=== PATIENT | female | born 1970 | race Caucasian/White ===

== ENCOUNTER 2022-02-13 07:30 | Outpatient (RCR) | payer OTHER, SELFPAY | END 2022-04-22 14:15 | disposition home or self-care (01) | PROVIDERS: Visit Provider Obstetrics & Gynecology | DX: M25.512 Pain in left shoulder (principal); Z51.89 Encounter for other specified aftercare | CPT/HCPCS: 97035; 97110; 97140 ==

== ENCOUNTER 2022-07-26 07:25 | Outpatient (CLI) | payer OTHER, SELFPAY ==
--- NOTE | 2022-07-26 07:45 | CRLHL7_ITS ---
For Patients: As a result of the Cures Act, medical imaging exams and procedure reports are released immediately into your electronic medical record. You may view this report before your referring provider. If you have questions, please contact your health care provider. BILATERAL SCREENING MAMMOGRAM WITH COMPUTER-AIDED DETECTION AND TOMOSYNTHESIS TECHNIQUE: CC and MLO views were obtained. These mammographic images have been obtained using full-field digital technique. These mammographic images were interpreted with the benefit of computer-aided detection. Breast tomosynthesis was used in this interpretation. COMPARISON FILM: 08/22/21, 08/15/20, 07/20/19. FINDINGS: The breasts are heterogeneously dense, which may obscure small masses. IMPRESSION: There is no radiographic evidence for malignancy. ASSESSMENT: BI-RADS Category 2: Benign RECOMMENDATION: Routine screening mammogram in 1 year. A lay language report of this examination will be provided to the patient. JOSE PAINTING M.D. Diagnostic Radiologist [email or web address] [email or web address] Transcribed: 07/26/2022, 2:[address]/Dictated by: Jose Painting MD @ 07/26/2022 8:37:00 AM (Electronically Signed)
== END 2022-07-26 07:26 | disposition home or self-care (01) ==
LOC: MAMMO 07:26
PROVIDERS: PCP Obstetrics & Gynecology; Visit Provider Obstetrics & Gynecology
DX: Z12.31 Encounter for screening mammogram for malignant neoplasm of breast (principal); R92.2 Inconclusive mammogram
CPT/HCPCS: 77063; 77067

== ENCOUNTER 2022-10-10 09:30 | Outpatient (REF) | payer OTHER, SELFPAY ==
[2022-10-10 09:59] LABS: Albumin* 4.1 g/dL (3.3-5.0); Chloride* 104 mmol/L (96-114); Potassium* 4.6 mmol/L (3.6-5.1); Sodium* 137 mmol/L (135-149)
[2022-10-10 10:01] LABS: Cholesterol* 205 mg/dL (90-199)
[2022-10-10 10:02] LABS: Alanine Aminotransferase* 27 U/L (4-35); Alkaline Phosphatase* 64 U/L (40-150); Aspartate Amino Transferase* 31 U/L (12-35); Basophils Absolute Auto 0.03 K/uL (0.00-0.30); Basophils Percent Auto 0.6 % (0.0-3.0); Bilirubin Total* 0.3 mg/dL (0.1-1.5); Blood Urea Nitrogen* 15 mg/dL (7-30); Carbon Dioxide* 30 mmol/L (20-32); Creatinine* 0.7 mg/dL (0.5-1.5); Eosinophils Absolute Auto 0.09 K/uL (0.00-0.50); Eosinophils Percent Auto 1.9 % (0.0-7.0); Estimated Glomerular Filt Rate 104 ml/min; Glucose* 90 mg/dL (60-115); Hematocrit 37.2 % (33.0-51.0); Hemoglobin* 12.3 gm/dL (12.0-16.0); Immature Granulocytes Abs Auto 0.01 K/uL (0.00-0.30); Immature Granulocytes Pct Auto 0.2 %; Lymphocytes Absolute Auto 1.67 K/uL (0.90-2.90); Lymphocytes Percent Auto 35.6 % (20-44); Mean Corpuscular HGB Conc 33 gm/dL (32-36); Mean Corpuscular Hemoglobin 32 pg (26-34); Mean Corpuscular Volume 97 fL (80-100); Neutrophils Absolute Auto 2.42 K/uL (1.7-7.0); Neutrophils Percent Auto 51.7 % (42.0-72.0); Platelet Count* 301 K/uL (140-440); RDW Coefficient of Variation % 12.3 % (11.5-15.5); Red Blood Count 3.82 m/uL (4.00-5.20); Total Protein* 6.7 g/dL (6.0-8.3); Triglycerides* 77 mg/dL (40-149); White Blood Count* 4.69 K/uL (4.50-11.00)
[2022-10-10 10:03] LABS: Calcium* 9.1 mg/dL (8.4-10.6); HDL Cholesterol* 65 mg/dL (>=50); LDL Cholesterol Calculated 125 mg/dL (<100)
[2022-10-10 10:06] LABS: Slide Review Reflex No
[2022-10-10 10:19] LABS: Hemoglobin A1C* 4.82 % (0-5.6)
[2022-10-11 12:24] LABS: Insulin, Random 7 uIU/mL
== END 2022-10-10 09:31 | disposition home or self-care (01) ==
LOC: NPINS 09:30
PROVIDERS: PCP Obstetrics & Gynecology
DX: R63.5 Abnormal weight gain (principal)
CPT/HCPCS: 80053; 80061; 83036; 83525; 84443; 85025

== ENCOUNTER 2023-02-05 07:13 | Outpatient (CLI) | payer OTHER, SELFPAY ==
--- NOTE | 2023-02-05 07:15 | CRLHL7_ITS ---
For Patients: As a result of the 21st Century Cures Act, medical imaging exams and procedure reports are released immediately into your electronic medical record. You may view this report before your referring provider. If you have questions, please contact your health care provider. HISTORY: Right knee pain. TECHNIQUE: Noncontrast MRI of the right knee. COMPARISON: No prior. FINDINGS: Medial compartment: Medial meniscus: There is complex tearing of the posterior horn of the medial meniscus as noted on coronal PD fat-sat images #18 through 21 of series 8. The tear is most severe just medial to the posterior horn root attachment of the meniscus. There is resultant loss of medial meniscal hoop stress with medial extrusion of the medial meniscal body. Anterior horn of the meniscus is intact. Articular cartilage: High-grade medial femoral condyle and medial tibial plateau articular cartilage wear (grade 3). Bone marrow edema within medial tibial plateau medially may relate to mild stress change or contusion. There is no discrete fracture. - Lateral compartment: Lateral meniscus: The posterior horn root region of lateral meniscus may be frayed. Lateral meniscus otherwise intact. Articular cartilage: High-grade cartilage loss involving the posterior aspect lateral tibial plateau (grade 3). Focal high-grade chondromalacia of the junction of the central and posterior aspects of lateral femoral condyle (grade 3). - Patellofemoral compartment: High-grade cartilage wear of the patella and trochlea (grade 3). - Ligaments: Anterior and posterior cruciate ligaments are intact. Chronic thickening of the proximal MCL. Lateral collateral complex intact. - Extensor mechanism: Distal quadriceps tendon and patellar tendon are intact. The medial and lateral patellar restraints are intact. No patellar subluxation. Insall-Salvati ratio upper limits normal. - Joint space: Large joint effusion with mild synovitis. - Bones and soft tissues: As above, there is bone marrow edema involving the medial tibial plateau medially, without discrete fracture. No avascular necrosis. No significant popliteal cyst. Subcutaneous edema is present. IMPRESSION: 1. Complex tear of the posterior horn of the medial meniscus with loss of meniscal hoop stress. 2. Possible fraying of the posterior horn root of the lateral meniscus. 3. Area of bone marrow edema involving the medial tibial plateau may relate to contusion or mild stress change. No discrete fracture. 4. Tricompartmental high-grade chondromalacia (grade 3). 5. Large knee joint effusion. Dictated by Esteban Moulton MD @ 02/06/2023 8:27:02 AM (Electronically Signed)
== END 2023-02-05 07:14 | disposition home or self-care (01) ==
LOC: MRI 07:14
PROVIDERS: PCP Obstetrics & Gynecology; Visit Provider Obstetrics & Gynecology
DX: M25.561 Pain in right knee (principal); S83.241A Other tear of medial meniscus, current injury, right knee, initial encounter; M94.261 Chondromalacia, right knee; M25.461 Effusion, right knee
CPT/HCPCS: 73721

== ENCOUNTER 2023-03-10 06:29 | Day surgery (SDC) | payer OTHER, SELFPAY ==
[2023-03-10] VITALS (15 sets, daily range): BP systolic 98–138; BP diastolic 52–80; PULSE 75–107; RESP 16–20; TEMP 36.6–37.1; O2SAT 97–100; BMI 27.3
[2023-03-10] MEDS: LACTATED RINGERS 1000 ML 1,000 ML 100 ML IV (06:35)
[2023-03-10] MEDS: SODIUM CHLORIDE 0.9 % (FLUSH) 10 ML SYRINGE IVF (07:08)
[2023-03-10] MEDS: CEFAZOLIN 2 GM in 0.9 % SODIUM CHLORIDE Mini-bag 100 ML IVPB (07:40)
[2023-03-10] MEDS: ROPIVACAINE 0.5% 30 ML 150 MG INJECTION (08:10)
--- NOTE | 2023-03-10 08:13 | P.ORPRC_ITS ---
Procedure Note Date of procedure: 03/10/23 Procedure: PREOPERATIVE DIAGNOSIS: 1. Right knee medial meniscus tear POSTOPERATIVE DIAGNOSIS: 1. Right knee medial meniscus tear 2. 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 Right knee arthroscopic partial medial meniscectomy 2. Right knee chondroplasty medial and lateral compartment SURGEON: Kp Murray M.D. CLAIM PROCESSING SPECIALIST: BENJAMIN Hensley. Of note, an emergency room physician assistant was critical for this case to aid in patient positioning, knee manipulation, instrument exchange, and closure. ANESTHESIA: Spinal EBL: 2ml TOURNIQUET: 20 min at 300 torr COMPLICATIONS: None evident INDICATIONS: The patient is a pleasant 52-year-old female who has experienced right knee pain particularly with any twisting or turning. Physical exam was concerning for medial meniscus tear, this was confirmed on MRI. Additionally, attempted nonoperative management has been tried, and failed. Thus, surgery was recommended. FINDINGS: Complex tear posterior horn approaching midbody medial meniscus. It did approach the posterior root. The posterior root did appear to be intact on the far periphery. Grade 4 chondromalacia patellofemoral compartment-especially trochlear groove distally. Grade 3 chondromalacia medial and lateral femoral condyles with loose chondral flaps for each. Intact lateral meniscus. ACL and PCL were intact. No loose bodies evident. DESCRIPTION OF PROCEDURE: After a thorough discussion of risks, benefits, and alternatives, the patient was brought to the operating room and placed upon the operating table. Induction of anesthesia was undertaken as previously noted. 2g iv Ancef was administered within 1 hr of incision preoperatively. Appropriate time-out was performed identifying proper patient, site, and procedure. The right lower extremity was prepped and draped in the appropriate sterile fashion using ChloraPrep. The limb was exsanguinated and tourniquet inflated. Anterolateral and anteromedial portals were established with an 11 blade, and a diagnostic arthroscopy was performed. This identified the findings as noted above. Following the diagnostic arthroscopy, a partial medial menisectomy was performed with the combination of basket forceps and a motorized shaver. Following this, the meniscus was re-probed and found to be stable. Approximately 20% of the overall meniscus required resection. In addition, chondroplasty was performed utilizing the torpedo shaver to debride the loose chondral flaps in the medial and lateral compartments of the femoral condyles. At this stage, the shaver was reinserted into the suprapatellar pouch and all remaining meniscal debris was evacuated. Instruments were removed, excess fluid was drained, and closure performed with 4-0 Monocryl with Steri-Strips. Dressings were applied, the tourniquet deflated, and the patient was awoken from anesthesia and transferred to the PACU in stable condition. PLAN: 1. Weightbear as tolerated operative extremity. Crutch / walker ambulation assistance PRN. 2. Ice, acetominophen and/or ibuprofen, and oxycodone for pain as needed. 3. Knee range of motion and quad sets/straight leg raise regularly 4. Follow up with PA visit in 1-2 weeks for a wound check and possibly to initiate physical therapy.
--- NOTE | 2023-03-10 08:27 | W.ANESCHARGE ---
Anesthesia Charges Start Date/Time Anesthesia Start Date: 03/10/23 Anesthesia Start Time: 07:26 Stop Date/Time Anesthesia Stop Date: 03/10/23 Anesthesia Stop Time: 08:25
--- NOTE | 2023-03-10 08:49 | W.ANESCHARGE ---
Anesthesia Charges Start Date/Time Anesthesia Start Date: 03/10/23 Anesthesia Start Time: 07:26 Stop Date/Time Anesthesia Stop Date: 03/10/23 Anesthesia Stop Time: 08:25
[2023-03-10] MEDS: ONDANSETRON 2 MG/ML inj 4 MG IVP (09:43)
== END 2023-03-10 10:25 | disposition home or self-care (01) ==
PROVIDERS: PCP Obstetrics & Gynecology; Visit Provider Orthopaedic Surgery Sports Medicine
PROC: (CPT 29870; principal; 2023-03-10 07:45)
DX: S83.231A Complex tear of medial meniscus, current injury, right knee, initial encounter (principal); M94.261 Chondromalacia, right knee
CPT/HCPCS: 29881; 1400; J0690; J2371; J2405; J2704; J2795; J3010; J7120

== ENCOUNTER 2023-05-28 10:15 | Outpatient (RCR) | payer OTHER, SELFPAY | END 2023-08-19 11:18 | disposition home or self-care (01) | PROVIDERS: PCP Obstetrics & Gynecology; Visit Provider Dentist General Practice | DX: M26.69 Other specified disorders of temporomandibular joint (principal); M26.623 Arthralgia of bilateral temporomandibular joint; R29.898 Other symptoms and signs involving the musculoskeletal system; Z51.89 Encounter for other specified aftercare | CPT/HCPCS: 97110; 97140; 97161 ==

== ENCOUNTER 2024-04-30 13:55 | Outpatient (CLI) | payer OTHER, SELFPAY ==
--- OUTSIDE RECORDS SUMMARY | 2024-04-30 13:58 | XMS_ITS | Clinical Summary ---
Author Organization [facility] Address [address] [place] [address] Care Team Providers Care Agronomy Internship Name Role Phone Needs Pcp, Assignment Primary Care Provider [phone] Source Comments You are receiving this document as you are listed as the primary care provider,follow-up provider, or the patient has been referred to you for consultation.This is in compliance with the Medicare andMedicaid EHR Incentive Program,which states Providers who transition their patient to another setting of careor provider of care or refers their patient to another provider of care shouldprovide summary care record for each transition of care or referral. [facility] Allergies No known active allergies Medications Medication Sig Dispensed Refills Start Date End Date Status buPROPion (WELLBUTRIN XL) 300 MG 24 hour release tablet Take 1 Tablet (300 mg) by mouth daily. 08/04/2021 Active estradiol (VIVELLEDOT) 0.05 MG/24HR biweekly patch Apply 1 Patch to skin two times a week. 07/29/2021 Active ibuprofen (MOTRIN) 200 MG tablet Take 3 Tablets (600 mg) by mouth every 24 hours as needed for Pain. 100 Tablet 11 04/30/2023 Active desvenlafaxine (PRISTIQ) 100 MG 24 hour release tablet Take 1 Tablet (100 mg) by mouth daily. 02/17/2023 Active testosterone (ANDROGEL) 50 MG/5GM (1%) gel SMARTSI Drop(s) Topical Daily 01/07/2023 Active hydroxychloroquine (PLAQUENIL) 200 MG tabletIndications:R heumatoid Arthritis 2 tabs on even days and 1 tab on odd days. Indications: Rheumatoid Arthritis 135 Tablet 3 04/30/2023 Active Active Problems Problem Noted Date Diagnosed Date Seronegative rheumatoid arthritis 08/15/2021 Rotator cuff syndrome, left 08/15/2021 Chronic neck pain 08/15/2021 Primary osteoarthritis of both knees 08/15/2021 Immunizations Name Administration Dates Next Due Flu Vac Preserv Free (3+yrs) 03/29/2020, 01/15/2013,03/11/2012, 010,03/24/2004 Fluzone Qiv Multidose Vial 0 .25 (6-35 Mos) 03/21/2021 HepA Adult (19+ yrs) 03/18/2004 HepB Adult (Engerix-B, 20+ y rs, 3 dose series) 06/22/1995 Pfizer Monovalent 12+ Purple Top 03/21/2021,06/23,06/14/2020 Td 10/21/2003 Tdap 11/04/2014 Typhoid (Typhim Vi, IM) 04/03/2004 YF (Yellow Fever) 04/03/2004 Social History Tobacco Use Types Packs/Day Years Used Date Smoking Tobacco: Never Smokeless Tobacco: Never Sex and Gender Information Value Date Recorded Sex Assigned at Not on file Gender Identity Not on file Sexual Orientation Not on file Last Filed Vital Signs Vital Sign Reading Time Taken Comments Blood Pressure 107/75 04/30/2023 2:14 PM TEMPLE MARKER Pulse 88 04/30/2023 2:14 PM TEMPLE MARKER Temperature 36.7 ??C (98 ??F) 12/26/2021 2:32 PM CDT Respiratory Rate - - Oxygen Saturation - - Inhaled Oxygen Concentration - - Weight 78.9 kg (174 lb) 04/30/2023 2:14 PM TEMPLE MARKER Height 168.3 cm (5' 6.25) 08/15/2021 10:[address] Body Mass Index 27.87 08/15/2021 10:38 AM TEMPLE MARKER Plan of Treatment Upcoming Encounters Date Type Department Care Team (Late st Contact Info) Description 05/05/2024 10:15 AM TEMPLE MARKER Appointment Rheumatology at [facility] [id number] [place] [id number] Marco Rainey MD [facility] [place] [address] Health Maintenance Due Date Last Done Comments Cervical Cancer Screening Due 1970 Colon Cancer Screening Plan Due 1970 Mammogram 1970 HIV Screening (Preventive Services) 1986 Adult Preventive Visit 1988 HepB (2) 07/20/1995 06/22/1995 HepA (2 of 2 - Risk 2-dose series) 09/15/2004 03/18/2004 Cholesterol 2015 Zoster/Shingles (1 of 2) 2020 COVID-19 Vaccine ( season) 2024 03/18/2023, 04/19/2022, 02/12/2022, Additional history exists Influenza (#1) 2024 03/18/2023, 03/23, 03/21/2021, Additional history exists DTaP/Tdap/Td (2 - Tdap) 11/04/2024 11/04/2014, 10/20 Hep C Screening (Preventive Services) Completed 08/15/2021 Hib Aged Out No longer eligi ble based on patient's age to complete this topic IPV (Polio) Aged Out No longer eligi ble based on patient's age to complete this topic Infant RSV Aged Out No longer eligi ble based on patient's age to complete this topic MCV4 Aged Out No longer eligi ble based on patient's age to complete this topic Pneumococcal Aged Out No longer eligi ble based on patient's age to complete this topic Procedures Procedure Name Priority Date/Time Associated Diagnosis Comments HEPATITIS C ANTIBODY, WITH REFLEX Routine 08/15/2021 11:27 AM TEMPLE MARKER Multiple joint pain from Last 3 Months or Most Recently Relevant to Health Maintenance Results * Hepatitis C Antibody, with Reflex (08/15/2021 11:27 AM TEMPLE MARKER) Hepatitis C Antibody Negative (Non Reactive) Negative (Non Reactive) 08/15/2021 3:58 PM TEMPLE MARKER [facility] Comment:Antibodies to HCV no t detected. Does not exclude the possiblity of exposure to HCV. Blood Venipuncture / Unknown 08/15/2021 11:27 AM TEMPLE MARKER 08/15/2021 11:27 AM TEMPLE MARKER Marco Rainey MD LAB_1 [facility] [address] [place] [address], [facility] from Last 3 Months or Most Recently Relevant to Health Maintenance Care Teams Agronomy Internship Relationship Specialty Start Date End Date Needs Pcp, [place] [address] PCP - General 08/15/21
--- OUTSIDE RECORDS SUMMARY | 2024-04-30 13:59 | XMS_ITS | Encounter Summary ---
Author Organization [facility] Address [address] [place] [id number] Care Team Providers Care Visitor Services Representative Name Role Phone Needs Pcp, Assignment Primary Care Provider Reason for Visit * Reason Comments Medication Questions Entered automatical ly based on patient selection in Eight19. Encounter Details Date Type Department Care Team (Late st Contact Info) Description 01/21/2024 10:15 AM CDT E-Visit Rheumatology at [address] [address] Marco Rainey MD [facility] [place] [address] Chief Comp: Medication Questions Social History Tobacco Use Types Packs/Day Years Used Date Smoking Tobacco: Never Smokeless Tobacco: Never Sex and Gender Information Value Date Recorded Sex Assigned at Not on file Gender Identity Not on file Sexual Orientation Not on file documented as of this encounter Plan of Treatment Upcoming Encounters Date Type Department Care Team (Late st Contact Info) Description 05/05/2024 10:15 AM FISHING MANAGER Appointment Rheumatology at [address] [address] Marco Rainey MD [address] [place] [address] documented as of this encounter Visit Diagnoses Not on filedocumented in this encounter Care Teams Visitor Services Representative Relationship Specialty Start Date End Date Needs Pcp, [place] [address] PCP - General 08/15/21 documented as of this encounter
--- NOTE | 2024-04-30 14:00 | CRLHL7_ITS ---
For Patients: As a result of the Century Cures Act, medical imaging exams and procedure reports are released immediately into your electronic medical record. You may view this report before your referring provider. If you have questions, please contact your health care provider. BILATERAL SCREENING MAMMOGRAM WITH COMPUTER-AIDED DETECTION AND TOMOSYNTHESIS TECHNIQUE: CC and MLO views were obtained. These mammographic images have been obtained using full-field digital technique. These mammographic images were interpreted with the benefit of computer-aided detection. Breast tomosynthesis was used in this interpretation. COMPARISON FILM: 07/26/22, 08/22/21, 08/15/20. FINDINGS: The breasts are heterogeneously dense, which may obscure small masses. IMPRESSION: There is no radiographic evidence for malignancy. ASSESSMENT: BI-RADS Category 1: Negative RECOMMENDATION: Routine screening mammogram in 1 year. A lay language report of this examination will be provided to the patient. JOSE PAINTING M.D. Diagnostic Radiologist [email or web address] CRYSTAL/naresh Transcribed: 05/06/2024, 3:[address]/Dictated by: Jose Painting MD @ 05/06/2024 12:19:00 PM (Electronically Signed)
== END 2024-04-30 13:56 | disposition home or self-care (01) ==
LOC: MAMMO 13:55
PROVIDERS: Visit Provider Obstetrics & Gynecology
DX: Z12.31 Encounter for screening mammogram for malignant neoplasm of breast (principal); R92.333 Mammographic heterogeneous density, bilateral breasts
CPT/HCPCS: 77063; 77067

== ENCOUNTER 2024-06-04 11:57 | Outpatient (CLI) | payer OTHER, SELFPAY ==
--- NOTE | 2024-06-04 12:15 | CRLHL7_ITS ---
For Patients: As a result of the Century Cures Act, medical imaging exams and procedure reports are released immediately into your electronic medical record. You may view this report before your referring provider. If you have questions, please contact your health care provider. INDICATION: POST MENOPAUSAL BLEEDING COMPARISON: none TECHNIQUE: 2D de la o scale and color Doppler images were acquired of the pelvis using a transabdominal and transvaginal approach. FINDINGS: Sonographic images demonstrate a normal size and smooth outer contour of the uterus. Uterus measures 7.5 cm in length by 3.5 cm in AP diameter by 4.7 cm in transverse dimension. Hypoechoic circumscribed left fundal intramural fibroid measures 7 x 5 x 7 millimeters. Additional intramural fibroid present within the right lower uterine segment measuring 12 x 9 x 11 millimeters. The endometrial lining measures 4 mm in composite thickness. Endometrial fluid is present. Possible cystic change at the junctional zone. The right ovary measures 2.4 x 0.7 x 2.0 cm in size and the left ovary measures 2.6 x 1.1 x 1.8 cm. The ovaries demonstrate normal arterial and venous blood flow on color Doppler analysis. There are no suspicious fluid collections within the cul-de-sac. IMPRESSION: Endometrial thickness 4 millimeters. A small amount of fluid in the endometrial canal is present. Possible adenomyosis. Incidental intramural fibroids. Dictated by Jose Mcrae MD @ 06/04/2024 12:41:35 PM (Electronically Signed)
== END 2024-06-04 11:58 | disposition home or self-care (01) ==
LOC: US 11:58
PROVIDERS: Visit Provider Obstetrics & Gynecology
DX: N95.0 Postmenopausal bleeding (principal); R93.89 Abnormal findings on diagnostic imaging of other specified body structures
CPT/HCPCS: 76830; 76856